=== PATIENT | male | born 1990 | race Caucasian/White ===

== ENCOUNTER 2019-12-07 04:45 | Emergency (ER) | payer SELFPAY ==
[~2019-12-07] VITALS: Ht 172.7 cm; Wt 136.1 kg
[2019-12-07 04:50] VITALS: BP 100/54
--- NOTE | 2019-12-07 04:56 | NUR ---
PT AMBULATED TO BED 11 WITH STEADY GAIT
--- NOTE | 2019-12-07 05:00 | NUR ---
AT BEDSIDE EXAMINING PT
[2019-12-07] MEDS ORDERED: ONDANSETRON 4 MG/2 ML VIAL IVP ONE (05:10)
[2019-12-07] MEDS ORDERED: MORPHINE SULFATE 4 MG/ML SYR IVP ONE (05:10)
--- NOTE | 2019-12-07 05:15 | NUR ---
29MPT FELT A POP WHILE LAYING IN BED AT 330AM AND SINCE THEN PT HAS HAD REALLY BAD BACK PAIN 04/07. BACK PAIN FEELS SHARP NEEDLES/PRESSURE/CONSTANT PAIN. TOOK 400MG IBUPROFEN AT 340AM WITH NO PAIN RELIEF. C/O EPIGASTRIC PAIN +DIAPHORETIC, +CHILLS, -N/V/D. STATES PAIN RELIEF WHEN SITTING UP. PT CONNECTED TO [employer]. BED LOWEST AND LOCKED, RAILS X1. PT TOOK TUMS AT 340AM WITH NO RELIEF. PT DENIES ANY TRAUMA. MEDICAL HX: PT DENIES NKA
--- NOTE | 2019-12-07 05:24 | NUR ---
PT MEDICATED WITH MORPHINE AND ZOFRAN VIA IVPUSH
[2019-12-07 05:25] LABS: BASOPHILS # (AUTO) 0.1 K/uL (0.00-0.22); BASOPHILS % (AUTO) 0.5 % (0.0-2.0); EOSINOPHILS # (AUTO) 0.2 K/uL (0-0.4); EOSINOPHILS % (AUTO) 1.8 % (0.0-4.0); HEMOGLOBIN 14.4 g/dL (12.0-18.0); LYMPHOCYTES # (AUTO) 3.7 K/uL (2.0-11.5); LYMPHOCYTES % (AUTO) 29.2 % (20.5-51.1); MEAN CORPUSCULAR HEMOGLOBIN 29 pg (27-31); MEAN CORPUSCULAR HGB CONC 33 g/dL (33-37); MEAN CORPUSCULAR VOLUME 85.9 fL (80-94); MONOCYTES # (AUTO) 0.6 K/uL (0.8-1.0); MONOCYTES % (AUTO) 4.8 % (1.7-9.3); NEUTROPHILS # (AUTO) 8.1 K/uL (1.8-7.7); NEUTROPHILS % (AUTO) 63.7 % (42.2-75.2); PLATELET COUNT (AUTO) 288 K/uL (140-450); RED BLOOD CELL COUNT(AUTO) 5.01 MIL/uL (4.20-6.10); RED CELL DISTRIBUTION WIDTH 13.9 % (11.6-13.7); WHITE BLOOD COUNT (AUTO) 12.7 K/uL (4.8-10.8)
--- NOTE | 2019-12-07 05:30 | NUR ---
PT TRANSFER TO XR VIA W/C.
[2019-12-07 05:31] LABS: APPEARANCE,URINE CLEAR (CLEAR); BILIRUBIN,URINE NEGATIVE (NEGATIVE); BLOOD, URINE NEGATIVE (NEGATIVE); COLOR,URINE YELLOW (YELLOW); LEUKOCYTE ESTERASE ,URINE NEGATIVE (NEGATIVE); NITRITE, URINE NEGATIVE (NEGATIVE); UGLUCOSE NEGATIVE (NEGATIVE)
[2019-12-07 05:39] LABS: ALBUMIN 4.1 g/dL (3.4-5.0); ANION GAP 14.4 (8-16); CARBON DIOXIDE 29.2 mmol/L (21-32); CREATININE 1.3 mg/dL (0.6-1.3); POTASSIUM 3.6 mmol/L (3.5-5.1); TOTAL BILIRUBIN 0.7 mg/dL (0.0-1.0)
--- NOTE | 2019-12-07 05:55 | NUR ---
PT RETURNED BACK FROM XR VIA W/C.
--- NOTE | 2019-12-07 06:05 | NUR ---
ERMD AT BEDSIDE FOR US BEDSIDE PROCEDURE.
[2019-12-07] MEDS ORDERED: NACL 0.9% 1,000 ML IV ONE (06:15)
--- NOTE | 2019-12-07 06:18 | NUR ---
PT REPORTS DECREASED PAIN FROM 9/10 TO 3/10 AND TOLERABLE. PT APPEARS CALM. NO FURTHER NEEDS AT THIS TIME. BED LOWEST AND LOCKED, HOB ELEVATED, RAILS X 1
--- NOTE | 2019-12-07 07:06 | NUR ---
RECEIVED REPORT FROM BOB AMBRIZ. TRANSFER OF CARE AT THIS TIME.
--- NOTE | 2019-12-07 08:17 | NUR ---
RESTING IN BED WITH EYES CLOSED, AROUSABLE TO NAME. STATES 2/10 PAIN AT THIS TIME. VSS WILL CONTINUE TO MONITOR
[2019-12-07 08:41] VITALS: BP 108/57
--- NOTE | 2019-12-07 08:42 | NUR ---
Patient discharged with v/s stable. Written and verbal after care instructions given and explained. Patient verbalized understanding. Ambulatory with steady gait. All questions addressed prior to discharge. Advised to follow up with PMD.
== END 2019-12-07 08:42 | disposition home or self-care (01) ==
LOC: MED 04:45
DX: M54.6 Pain in thoracic spine (principal); R10.13 Epigastric pain
CPT/HCPCS: 36415; 72080; 74022; 76700; 80053; 81003; 82150; 83690; 85025; 96374; 96375; 99285; J2270; J2405; J7030; Q0092; 93005

== ENCOUNTER 2021-04-01 06:14 | Emergency (ER) | payer MEDICAID, OTHER ==
[~2021-04-01] VITALS: Ht 172.7 cm; Wt 131.5 kg
[2021-04-01 06:15] VITALS: BP 140/74
--- NOTE | 2021-04-01 06:15 | NUR ---
to bed ambulatory
[2021-04-01] MEDS ORDERED: ONDANSETRON 4 MG/2 ML VIAL ONE (06:41)
[2021-04-01] MEDS ORDERED: MORPHINE SULFATE 4 MG/ML SYR ONE (06:42)
[2021-04-01] MEDS ORDERED: KETOROLAC 30 MG/ML VIAL ONE (06:42)
[2021-04-01] MEDS ORDERED: KETOROLAC 30 MG/ML VIAL IVP ONE ×2 (06:45→07:20)
[2021-04-01] MEDS ORDERED: ONDANSETRON 4 MG/2 ML VIAL IVP ONE (06:45)
[2021-04-01] MEDS ORDERED: NACL 0.9% 1,000 ML IV ONE (06:45)
[2021-04-01] MEDS ORDERED: MORPHINE SULFATE 4 MG/ML SYR IVP ONE ×2 (06:45→07:20)
--- NOTE | 2021-04-01 07:13 | NUR ---
GIVEN REPORT TO BOB OSEGUERA. TRANSFER OF CARE AT THIS TIME.
--- NOTE | 2021-04-01 07:22 | NUR ---
REPORT RECEIVED FROM BOB CARNES. TRANSFER OF CARE RECEIVED
--- NOTE | 2021-04-01 08:35 | NUR ---
pt provided with ice chips bedside. pt stated pain relief in lower back and slight relief in his stomach
--- NOTE | 2021-04-01 08:40 | NUR ---
pt resting in bed currently with pain relief. pt resting with eyes open and bed in lowest position. siderail x1 up and bed in locked position. vital signs stable and will continue to monitor
[2021-04-01 09:18] LABS: APPEARANCE,URINE HAZY (CLEAR); BILIRUBIN,URINE NEGATIVE (NEGATIVE); BLOOD, URINE NEGATIVE (NEGATIVE); COLOR,URINE YELLOW (YELLOW); LEUKOCYTE ESTERASE ,URINE NEGATIVE (NEGATIVE); NITRITE, URINE NEGATIVE (NEGATIVE); UGLUCOSE NEGATIVE (NEGATIVE)
[2021-04-01 09:23] LABS: RBC,URINE 0-5 /HPF (0-5); WBC,URINE 0-5 /HPF (0-5)
[2021-04-01] MEDS ORDERED: NAPR-54 PO (10:33)
[2021-04-01 10:47] VITALS: BP 166/71
== END 2021-04-01 10:49 | disposition home or self-care (01) ==
LOC: MED 06:14
DX: R10.9 Unspecified abdominal pain (principal); M54.9 Dorsalgia, unspecified; Z79.899 Other long term (current) drug therapy; Z87.442 Personal history of urinary calculi
CPT/HCPCS: 74176; 81001; 96361; 96374; 96375; 96376; 99284; J1885; J2270; J2405; J7030

== ENCOUNTER 2022-08-02 04:15 | Emergency (ER) | payer OTHER ==
[~2022-08-02] VITALS: Ht 172.7 cm; Wt 113.4 kg
[~2022-08-02 04:15] MED LIST: NAPR-54 PO
[2022-08-02 04:19] VITALS: BP 136/81
--- NOTE | 2022-08-02 04:25 | NUR ---
TO LOBBY FOLLOWING TRIAGE
[2022-08-02] MEDS ORDERED: KETOROLAC 30 MG/ML VIAL IM ONE (04:30)
--- NOTE | 2022-08-02 04:30 | NUR ---
Patient sitting in chair, A/Ox4, chest rise and fall symmetrical, no s/s of distress.
[2022-08-02] MEDS ORDERED: CYCL-711 PO (04:31)
[2022-08-02] MEDS ORDERED: LID5T TP (04:31)
[2022-08-02] MEDS ORDERED: NAPR-54 PO (04:31)
[2022-08-02 04:42] VITALS: BP 122/78
== END 2022-08-02 04:42 | disposition home or self-care (01) ==
LOC: MED 04:15
DX: S39.012A Strain of muscle, fascia and tendon of lower back, initial encounter (principal); X58.XXXA Exposure to other specified factors, initial encounter; Y93.89 Activity, other specified; Y92.89 Other specified places as the place of occurrence of the external cause; Y99.8 Other external cause status
CPT/HCPCS: 96372; 99283; J1885

== ENCOUNTER 2023-07-06 10:54 | Emergency (ER) | payer OTHER ==
[~2023-07-06] VITALS: Ht 172.7 cm; Wt 109.0 kg
[~2023-07-06 10:54] MED LIST changes: +CYCL-711 PO; +LID5T TP
[2023-07-06 11:14] VITALS: BP 126/83; PULSE 92; RESP 18; TEMP 98.9; O2SAT 97
[2023-07-06 11:38] VITALS: BP 120/80; PULSE 88; RESP 18; TEMP 98.9; O2SAT 99
== END 2023-07-06 11:38 | disposition home or self-care (01) ==
LOC: MED 10:54
DX: U07.1 COVID-19 (principal); J06.9 Acute upper respiratory infection, unspecified; Z79.899 Other long term (current) drug therapy
CPT/HCPCS: 99281